=== PATIENT | male | born 1950 | race Caucasian/White ===

== ENCOUNTER 2016-07-11 09:01 | Emergency (ER) | payer BC, MEDICARE ==
[2016-07-11] MEDS: SODIUM CHLORIDE 0.9% FLUSH 10 ML SOL IV PRN ×5 (09:10→10:08)
[2016-07-11] MEDS ORDERED: SODIUM CHLORIDE 0.9% 1000ML 1,000 ML IV ONE ×2 (09:15→09:20)
[2016-07-11] MEDS ORDERED: FENTANYL CITRATE 50 MCG/ML SOL ONE (09:25)
[2016-07-11] MEDS ORDERED: FENTANYL CITRATE 50 MCG/ML SOL IV ONE (09:27)
[2016-07-11 09:35] LABS: BASOPHILS % (AUTO) 1 % (0-3); EOSINOPHILS % (AUTO) 0 % (0-9); HEMATOCRIT 32 % (39-53); MEAN CORPUSCULAR HGB CONC 34.3 gm/dl (32.0-36.0); MEAN CORPUSCULAR VOLUME 102 fL (80-100); MONOCYTES % (AUTO) 5.8 % (0-12); NEUTROPHILS % (AUTO) 78.2 % (37-80)
[2016-07-11] MEDS ORDERED: PROTHROMBIN COMPLEX HUMAN IV ONE ×2 (09:41→09:45)
[2016-07-11 09:56] LABS: ANISOCYTOSIS SLIGHT AMT
[2016-07-11] MEDS ORDERED: PROTHROMBIN COMPLEX HUMAN 500 IU PDS IV ONE (09:59)
[2016-07-11] MEDS ORDERED: ONDANSETRON HCL 4 MG/2 ML SOL ONE (10:07)
[2016-07-11] MEDS ORDERED: ONDANSETRON HCL 4 MG/2 ML SOL IV ONE (10:08)
[2016-07-11 10:19] LABS: POTASSIUM 3.7 mMol/L (3.5-5.1)
[2016-07-11 10:33] LABS: CALCIUM 8.8 mg/dl (8.5-10.1)
[2016-07-11 10:57] LABS: ABO A; ANTIBODY SCREEN Negative; RH TYPE Positive; UNIT TYPE O NEGATIVE
[2016-07-11 11:06] VITALS: TEMP 97.2
[2016-07-11 11:09] VITALS: O2SAT 99
[2016-07-11 11:10] VITALS: BP 94/60; PULSE 82; RESP 17
== END 2016-07-11 10:23 | disposition short-term general hospital (02) | DRG 316 ==
LOC: ED 09:01
DX: T82.838A Hemorrhage due to vascular prosthetic devices, implants and grafts, initial encounter (principal); Z79.01 Long term (current) use of anticoagulants
CPT/HCPCS: 71010; 80053; 84484; 85025; 85610; 86850; 86900; 86901; 86920; 93005; 96365; 96374; 96375; 99070; 99291; C9132; J2405; J3010; P9016